=== PATIENT | male | born 1975 | race Caucasian/White ===

== ENCOUNTER 2016-07-02 00:01 | Emergency (ER) | payer SELFPAY ==
[~2016-07-02] VITALS: Ht 172.7 cm; Wt 64.8 kg
[~2016-07-02 00:01] MED LIST: ROBA750T3 PO; Z.0.NO CURRENT MEDS
[2016-07-02 00:08] VITALS: BP 114/81; PULSE 90; RESP 18; TEMP 98.6; O2SAT 97
[2016-07-02] MEDS ORDERED: AMOX500T PO (01:25)
--- NOTE | 2016-07-02 01:27 | PD ---
HPI Chief Complaint: Oral / Dental Pain or Problem Time Seen by Provider: 01:21 Travel History International Travel<30 days: No Contact w/Intl Traveler<30days: No Traveled to known affect area: No History of Present Illness HPI 40 year-old male presents to the emergency department for complaint of right- sided jaw pain with dental pain since . Patient has noticed increasing swelling of the right jaw. Patient denies any difficulty with swallowing or pain that is affecting the submandibular space or swelling to the submandibular space. Patient is not diabetic. Patient denies substance use. Patient's had no fever or chills. Patient rates pain as moderate to severe. Patient presents requesting antibiotic. Patient has used [id number] medications without improvement of symptoms. [facility] Past Medical History Narrative Medical Asthma, herniorrhaphy, tobacco use alcohol use; nursing notes reviewed Asthma: Yes Tetanus Vaccination: > 5 Years Influenza Vaccination: No Past Surgical History Abdominal Surgery: Yes (Hernia repair) Social History Alcohol Use: Yes (2-3 beers daily) Tobacco Use: Yes (1/2 ppd) Substance Use: No Allergies-Medications (Allergen,Severity, Reaction): Coded Allergies: No Known Allergies (Unverified , 07/02/16) Reported Meds & Prescriptions Reported Meds & Active Scripts Active Amoxicillin 500 Mg Tab 500 Mg PO TID 10 Days Review of Systems Except as stated in HPI: all other systems reviewed are Neg General / Constitutional: No: Fever, Chills HENT: Positive: Dental Difficulties, No: Sore Throat, Congestion Cardiovascular: No: Chest Pain or Discomfort Respiratory: No: Shortness of Breath Gastrointestinal: No: Nausea, Vomiting Genitourinary: No: Flank Pain Musculoskeletal: No: Myalgias, Arthralgias Skin: No Rash, No Lumps Neurologic: No: Weakness Endocrine: No: Polyuria Hematologic/Lymphatic: No: Lymph Node Enlargement Physical Exam Narrative GENERAL: Well-developed well-nourished male in no acute distress no respiratory distress SKIN: Warm and dry. HEAD: Normocephalic. EYES: No scleral icterus. No injection or drainage. ENT airway is patent mucous membranes moist markedly decayed dentition with right mandible gingival edema without fluctuance aligned with the #1415 dentition NECK: Supple, trachea midline. No JVD or lymphadenopathy. CARDIOVASCULAR: Regular rate and rhythm without murmurs, gallops, or rubs. RESPIRATORY: Breath sounds equal bilaterally. No accessory muscle use. GASTROINTESTINAL: Abdomen soft, non-tender, nondistended. MUSCULOSKELETAL: No cyanosis, or edema. BACK: Nontender without obvious deformity. No CVA tenderness. Data Data Last Documented VS Vital Signs Date Time Temp Pulse Resp B/P Pulse Ox O2 Delivery O2 Flow Rate FiO2 07/02/16 01:47 100 18 117/70 96 Room Air 07/02/16 00:08 98.6 Orders Ibuprofen (Motrin) (07/02/16 01:30) Amoxicillin (Trimox) (07/02/16 01:30) Sodium Chloride 0.9% Flush (Ns Flush) (07/02/16 01:30) Clindamycin Inj (Cleocin Inj) (07/02/16 01:30) [facility] Medical Decision Making Medical Screen Exam Complete: Yes Emergency Medical Condition: Yes Medical Record Reviewed: Yes Differential Diagnosis Dentalgia, dental caries, dental abscess, submandibular abscess Narrative Course Patient with soft tissue swelling along the right mandible with alignment of the #14 and 15 dentition with multiple dental caries with localized dental induration without fluctuance; airway patent and midline no submandibular soft tissue swelling induration fluctuance or mass. Patient given injection of clindamycin 600 mg IM times one dose oral dose of amoxicillin 500 mg times one dose and ibuprofen 600 mg times one dose. Patient encouraged to complete course of antibiotic as prescribed and to follow-up with dentist as well as hard dental extraction. Diagnosis Primary Impression: Dentalgia Additional Impression: Dental abscess Referrals: Dentist 2 days Patient Instructions: General Instructions Additional Instructions: Use warm saltwater swish and spit Complete course of antibiotic as prescribed Take ibuprofen/Advil/Motrin 600 mg as often as every 6 hours as needed for pain associated inflammation Take acetaminophen for minor pain or fever 100.4F or greater Follow-up with dentist call office on Sunday Return to the emergency department for any concerns or change in condition Med/Other Pt SpecificInfo: Prescription(s) given Scripts Amoxicillin 500 Mg Kll624 Mg PO TID 10 Days Ref 0 Prov:Lissy Yoon MD 07/02/16 Disposition: 01 DISCHARGE HOME Condition: Stable Lissy Yoon MD Jul 02, 2016 01:27
[2016-07-02] MEDS ORDERED: CLINDAMYCIN PHOS 600 MG/4 ML VIAL IM ONE (01:30)
[2016-07-02] MEDS ORDERED: IBUPROFEN 600 MG TAB PO ONE (01:30)
[2016-07-02] MEDS ORDERED: AMOXICILLIN (TRIHYDRATE) 500 MG CAP PO ONE (01:30)
[2016-07-02] MEDS ORDERED: SODIUM CHLORIDE 0.9% FLUSH 5 ML FLUSH IVF PRN (01:30)
[2016-07-02 01:47] VITALS: BP 117/70; PULSE 100; RESP 18; O2SAT 96
== END 2016-07-02 02:46 | disposition home or self-care (01) ==
LOC: PHED 00:01
DX: K08.89 Other specified disorders of teeth and supporting structures (principal); K04.7 Periapical abscess without sinus; R22.0 Localized swelling, mass and lump, head; J45.909 Unspecified asthma, uncomplicated; F17.210 Nicotine dependence, cigarettes, uncomplicated
CPT/HCPCS: 96372

== ENCOUNTER 2017-10-09 12:35 | Emergency (ER) | payer SELFPAY ==
[~2017-10-09] VITALS: Ht 172.7 cm; Wt 64.0 kg
[~2017-10-09 12:35] MED LIST changes: +AMOX500T PO; -ROBA750T3 PO; -Z.0.NO CURRENT MEDS
[2017-10-09 12:55] VITALS: BP 122/62; PULSE 87; RESP 16; TEMP 87; O2SAT 100
[2017-10-09] MEDS ORDERED: TETANUS/DIPHTHERIA TOXOID ADULT 0.5 ML VIAL IM ONE (13:15)
--- NOTE | 2017-10-09 13:31 | PD ---
HPI Chief Complaint: Foreign Body Time Seen by Provider: 13:08 Travel History International Travel<30 days: No Contact w/Intl Traveler<30days: No Traveled to known affect area: No History of Present Illness HPI 42-year-old male presents emergency department with fishhook to the dorsal surface of the right hand. It is over the fourth extensor tendon. He is unsure of his last tetanus shot. Pain is 7 out of 10. Bleeding is minimal. He was fishing in [place]. He has no other complaints. He has no known drug allergies. [facility] Past Medical History Asthma: Yes Past Surgical History Abdominal Surgery: Yes (Hernia repair) Social History Alcohol Use: Yes (2-3 beers daily) Tobacco Use: Yes (1/2 ppd) Substance Use: No Allergies-Medications (Allergen,Severity, Reaction): Coded Allergies: No Known Allergies (Unverified , 07/02/16) Reported Meds & Prescriptions Reported Meds & Active Scripts Active Amoxicillin 500 Mg Tab 500 Mg PO TID 10 Days Review of Systems Except as stated in HPI: all other systems reviewed are Neg General / Constitutional: No: Fever Eyes: No: Visual changes HENT: No: Headaches Cardiovascular: No: Chest Pain or Discomfort Respiratory: No: Shortness of Breath Gastrointestinal: No: Abdominal Pain Genitourinary: No: Dysuria Musculoskeletal: No: Pain Skin: Positive Lesions (See history of present illness per), No Rash Neurologic: No: Weakness Psychiatric: No: Depression Endocrine: No: Polydipsia Hematologic/Lymphatic: No: Easy Bruising Physical Exam Narrative GENERAL: Patient appears in mild to moderate distress per SKIN: Warm and dry. Normal color. Normal turgor. Patient has a 3 pronged fishhook with one prong embedded in the dorsal right hand with localized swelling. There is minimal bleeding HEAD: Atraumatic. Normocephalic. EYES: Pupils equal and round. No scleral icterus. No injection or drainage. ENT: No nasal bleeding or discharge. Mucous membranes pink and moist. Pharynx is clear. Airways patent. NECK: Trachea midline. Supple CARDIOVASCULAR: Regular rate and rhythm. RESPIRATORY: No accessory muscle use. Clear to auscultation. Breath sounds equal bilaterally. MUSCULOSKELETAL: Extremities without clubbing, cyanosis, or edema. No obvious deformities. Patient has no numbness, tingling, or loss of function. NEUROLOGICAL: Awake and alert. No obvious cranial nerve deficits. Motor grossly within normal limits. Five out of 5 muscle strength in the arms and legs. Normal speech. PSYCHIATRIC: Appropriate mood and affect; insight and judgment normal. Data Data Last Documented VS Vital Signs Date Time Temp Pulse Resp B/P (MAP) Pulse Ox O2 Delivery O2 Flow Rate FiO2 10/09/17 12:55 87.0 87 16 122/62 (82) 100 Orders Orders Tetanus/Diphtheria Tox Adult (Tetanus/Di (10/09/17 13:15) Cefazolin Inj (Ancef Inj) (10/09/17 13:15) [facility] Medical Decision Making Medical Screen Exam Complete: Yes Emergency Medical Condition: Yes Differential Diagnosis Foreign body. [place]. Need for foreign body removal Narrative Course Patient is medically stable. [place] was removed without incident. Patient is given 500 mg Ancef IM. Patient is also given tetanus IM Patient continued on Bactrim DS twice daily 7 days. Patient to take Tylenol or ibuprofen as needed for discomfort. Wound care is discussed with the patient. Patient follow-up if symptoms worsen as needed. Procedures Procedure Narrative After the risks and benefits were discussed the following procedure was performed: Soft tissue foreign body removal: The area was prepped and was sterilely draped. A subcutaneous wheal of 1% Xylocaine with epi with a total number 2.5 mL was used to anesthetize the area. The area was properly anesthetized. Foreign body was removed without difficulty. Sterile dressing applied. Wound care was discussed with the patient. Diagnosis Primary Impression: Fish hook injury of hand Qualified Codes: S69.91XA - Unspecified injury of right wrist, hand and finger (s), initial encounter Patient Instructions: General Instructions, Soft Tissue Foreign Body (ED) Additional Instructions: [place] was removed without incident. Patient is given 500 mg Ancef IM. Patient is also given tetanus IM Patient continued on Bactrim DS twice daily 7 days. Patient to take Tylenol or ibuprofen as needed for discomfort. Wound care is discussed with the patient. Patient follow-up if symptoms worsen as needed. Med/Other Pt SpecificInfo: Prescription(s) given Disposition: 01 DISCHARGE HOME Condition: Stable Erickson Tanner October 09, 2017 13:31
[2017-10-09] MEDS ORDERED: BACT800T5 PO (13:32)
== END 2017-10-09 13:59 | disposition home or self-care (01) ==
LOC: NEPD 12:35
DX: S61.441A Puncture wound with foreign body of right hand, initial encounter (principal); W45.8XXA Other foreign body or object entering through skin, initial encounter; Y93.89 Activity, other specified
CPT/HCPCS: 10120; 90471; 90714; 96372; 99283; J0690